=== PATIENT | female | born 1995 | race African-American/Black ===

== ENCOUNTER 2016-12-13 09:46 | Emergency (ER) | payer OTHER ==
[~2016-12-13] VITALS: Ht 160 cm; Wt 81.6 kg
[2016-12-13 09:49] VITALS: BP_SYST 160
[2016-12-13] MEDS ORDERED: methylPREDNISolone SOD SUCC/PF 62.5 MG/ML VIAL IVP ONE (10:00)
[2016-12-13] MEDS ORDERED: DIPHENHYDRAMINE HCL 25 MG CAPSULE PO ONE (10:30)
[2016-12-13 11:09] VITALS: BP_SYST 115
== END 2016-12-13 11:09 | disposition home or self-care (01) ==
LOC: SED 09:46
DX: T78.40XA Allergy, unspecified, initial encounter (principal); J45.909 Unspecified asthma, uncomplicated; Z91.012 Allergy to eggs; Z91.02 Food additives allergy status; Z91.013 Allergy to seafood; X58.XXXA Exposure to other specified factors, initial encounter
CPT/HCPCS: 96374; 99284; J2930; Q0163

== ENCOUNTER 2017-06-21 03:27 | Emergency (ER) | payer OTHER ==
[~2017-06-21] VITALS: Ht 165.1 cm; Wt 82.1 kg
[2017-06-21 03:28] VITALS: BP_SYST 138
[2017-06-21] MEDS ORDERED: NACL 0.9% 1,000 ML IV ONE (03:36)
[2017-06-21] MEDS ORDERED: FAMOTIDINE PF 20 MG/2 ML VIAL IVP ONE (03:45)
[2017-06-21] MEDS ORDERED: EPINEPHrine JECT 1 MG/10 ML SYR IM ONE (03:45)
[2017-06-21] MEDS ORDERED: methylPREDNISolone SOD SUCC/PF 62.5 MG/ML VIAL IVP ONE (03:45)
[2017-06-21] MEDS ORDERED: EPINEPHrine 1 MG/ML AMP ONE (03:51)
[2017-06-21 04:08] LABS: HEMATOCRIT 40.3 % (36-48); LYMPHOCYTES % (AUTO) 32.7 % (20.5-51.5); MEAN CORPUSCULAR HEMOGLOBIN 27 pg (27-31); MEAN CORPUSCULAR HGB CONC 32 % (32-36); MEAN CORPUSCULAR VOLUME 82 fL (79.0-98.0); MONOCYTES % (AUTO) 13.2 % (1.7-9.3); NEUTROPHILS % (AUTO) 50.6 % (40.0-70.0); PLATELET COUNT (AUTO) 325 K/uL (130-430); RED CELL DISTRIBUTION WIDTH 13.6 % (9.0-15.0); WHITE BLOOD COUNT (AUTO) 8.5 K/uL (4.8-10.8)
[2017-06-21 04:09] LABS: BASOPHILS # (AUTO) 0.3 K/uL (0.0-0.2); BASOPHILS % (AUTO) 3.4 % (0.0-2.0); EOSINOPHILS % (AUTO) 0.1 % (0.0-4.0); LYMPHOCYTES # (AUTO) 2.8 K/uL (1.0-5.5); MONOCYTES # (AUTO) 1.1 K/uL (0.0-1.0); NEUTROPHILS # (AUTO) 4.3 K/uL (1.8-7.7)
[2017-06-21 04:10] LABS: CALCIUM 8.7 mg/dL (8.4-11.0); CREATININE 1.07 mg/dL (0.55-1.30); POTASSIUM 3.8 mmol/L (3.5-5.1)
[2017-06-21 04:16] LABS: ALBUMIN 3.4 g/dL (3.4-4.8); TOTAL BILIRUBIN 0.4 mg/dL (0.0-1.0)
[2017-06-21 04:41] LABS: BILIRUBIN,URINE NEGATIVE (NEGATIVE); BLOOD, URINE NEGATIVE (NEGATIVE); CLARITY/URINE CLEAR (CLEAR); COLOR,URINE YELLOW (YELLOW); GLUCOSE,URINE NEGATIVE (NEGATIVE); KETONES,URINE NEGATIVE (NEGATIVE); LEUKOCYTE ESTERASE ,URINE NEGATIVE (NEGATIVE); NITRITE, URINE NEGATIVE (NEGATIVE); PH,URINE 5.5 (5.0-8.0); PROTEIN URINE NEGATIVE (NEGATIVE); UROBILINOGEN,URINE 0.2 (0.2-1.0)
[2017-06-21] MEDS ORDERED: EPINEPHrine 1 MG/ML AMP IM ONE (05:15)
[2017-06-21 06:30] VITALS: BP_SYST 117
== END 2017-06-21 06:30 | disposition home or self-care (01) ==
LOC: SED 03:27
DX: T78.3XXA Angioneurotic edema, initial encounter (principal); J45.909 Unspecified asthma, uncomplicated; Z91.012 Allergy to eggs; Z91.013 Allergy to seafood; Z91.018 Allergy to other foods
CPT/HCPCS: 36415; 80053; 81003; 81025; 85025; 96361; 96372; 96374; 96375; 99284; J0171; J2930; J3490; J7030

== ENCOUNTER 2017-11-13 10:29 | Emergency (ER) | payer OTHER ==
[~2017-11-13] VITALS: Ht 162.6 cm; Wt 90.7 kg
[2017-11-13 10:39] VITALS: BP_SYST 146
[2017-11-13 12:00] VITALS: BP_SYST 146
[2017-11-13] MEDS ORDERED: IBUPROFEN 600 MG TABLET PO ONE (12:00)
== END 2017-11-13 12:00 | disposition home or self-care (01) ==
LOC: SED 10:29
DX: S16.1XXA Strain of muscle, fascia and tendon at neck level, initial encounter (principal); J45.909 Unspecified asthma, uncomplicated; R03.0 Elevated blood-pressure reading, without diagnosis of hypertension; Z91.012 Allergy to eggs; Z91.013 Allergy to seafood; Z91.018 Allergy to other foods; V43.52XA Car driver injured in collision with other type car in traffic accident, initial encounter; Y93.89 Activity, other specified; Y92.488 Other paved roadways as the place of occurrence of the external cause; Y99.8 Other external cause status
CPT/HCPCS: 72050-TC; 99284

== ENCOUNTER 2018-11-17 05:16 | Emergency (ER) | payer OTHER ==
[~2018-11-17] VITALS: Ht 162.6 cm; Wt 89.8 kg
[2018-11-17] MEDS ORDERED: methylPREDNISolone SOD SUCC/PF 62.5 MG/ML VIAL IVP ONE (06:00)
[2018-11-17] MEDS ORDERED: IPRATROPIUM/ALBUTEROL SULFATE 3 ML AMPUL.NEB (DUONEB) INH ONE (06:00)
[2018-11-17 06:04] LABS: BASOPHILS % (AUTO) 0.3 % (0.0-2.0); EOSINOPHILS % (AUTO) 0.4 % (0.0-4.0); HEMATOCRIT 40.4 % (36-48); HEMOGLOBIN 13.3 g/dL (12.0-16.0); LYMPHOCYTES # (AUTO) 2.3 K/uL (1.0-5.5); LYMPHOCYTES % (AUTO) 23.6 % (20.5-51.5); MEAN CORPUSCULAR HEMOGLOBIN 27 pg (27-31); MEAN CORPUSCULAR HGB CONC 33 % (32-36); MEAN CORPUSCULAR VOLUME 83 fL (79.0-98.0); MONOCYTES % (AUTO) 10.3 % (1.7-9.3); NEUTROPHILS # (AUTO) 6.3 K/uL (1.8-7.7); NEUTROPHILS % (AUTO) 65.4 % (40.0-70.0); PLATELET COUNT (AUTO) 271 K/uL (130-430); RED BLOOD CELL COUNT(AUTO) 4.85 MIL/uL (4.2-6.2); RED CELL DISTRIBUTION WIDTH 14.1 % (9.0-15.0); WHITE BLOOD COUNT (AUTO) 9.6 K/uL (4.8-10.8)
[2018-11-17] MEDS ORDERED: methylPREDNISolone SOD SUCC/PF 62.5 MG/ML VIAL IM ONE (06:30)
[2018-11-17 07:48] VITALS: BP_SYST 132
== END 2018-11-17 07:48 | disposition home or self-care (01) ==
LOC: SED 05:16
DX: J45.901 Unspecified asthma with (acute) exacerbation (principal); J20.9 Acute bronchitis, unspecified; F41.9 Anxiety disorder, unspecified; F32.9 Major depressive disorder, single episode, unspecified; F90.9 Attention-deficit hyperactivity disorder, unspecified type; Z91.012 Allergy to eggs; Z91.013 Allergy to seafood; Z91.018 Allergy to other foods
CPT/HCPCS: 36415; 71045; 85025; 94640; 96372; 99284; J2930

== ENCOUNTER 2018-11-20 13:42 | Emergency (ER) | payer OTHER ==
[~2018-11-20] VITALS: Ht 160 cm; Wt 89.8 kg
[2018-11-20 14:07] VITALS: BP_SYST 129
[2018-11-20] MEDS ORDERED: NACL 0.9% 1,000 ML IV ONE (14:15)
[2018-11-20 14:42] LABS: BASOPHILS % (AUTO) 0.2 % (0.0-2.0); EOSINOPHILS % (AUTO) 0.2 % (0.0-4.0); HEMATOCRIT 42.6 % (36-48); HEMOGLOBIN 14.1 g/dL (12.0-16.0); LYMPHOCYTES # (AUTO) 2.1 K/uL (1.0-5.5); LYMPHOCYTES % (AUTO) 18.9 % (20.5-51.5); MEAN CORPUSCULAR HEMOGLOBIN 27 pg (27-31); MEAN CORPUSCULAR HGB CONC 33 % (32-36); MEAN CORPUSCULAR VOLUME 83 fL (79.0-98.0); MONOCYTES # (AUTO) 0.9 K/uL (0.0-1.0); NEUTROPHILS # (AUTO) 8.1 K/uL (1.8-7.7); NEUTROPHILS % (AUTO) 72.7 % (40.0-70.0); PLATELET COUNT (AUTO) 341 K/uL (130-430); RED BLOOD CELL COUNT(AUTO) 5.12 MIL/uL (4.2-6.2); RED CELL DISTRIBUTION WIDTH 13.8 % (9.0-15.0); WHITE BLOOD COUNT (AUTO) 11.2 K/uL (4.8-10.8)
[2018-11-20 15:10] LABS: CALCIUM 8.8 mg/dL (8.4-11.0); CREATININE 1.09 mg/dL (0.55-1.30); POTASSIUM 3.9 mmol/L (3.5-5.1)
[2018-11-20 15:15] LABS: ALBUMIN 3.2 g/dL (3.4-4.8); TOTAL BILIRUBIN 0.5 mg/dL (0.0-1.0)
[2018-11-20] MEDS ORDERED: KETOROLAC TROMETHAMINE 30 MG VIAL IVP ONE (15:30)
[2018-11-20] MEDS ORDERED: ONDANSETRON HCL 4 MG/2 ML VIAL IVP ONE (15:30)
[2018-11-20 16:46] LABS: BILIRUBIN,URINE NEGATIVE (NEGATIVE); BLOOD, URINE NEGATIVE (NEGATIVE); CLARITY/URINE SL HAZY (CLEAR); COLOR,URINE YELLOW (YELLOW); GLUCOSE,URINE NEGATIVE (NEGATIVE); KETONES,URINE NEGATIVE (NEGATIVE); LEUKOCYTE ESTERASE ,URINE NEGATIVE (NEGATIVE); NITRITE, URINE NEGATIVE (NEGATIVE); PROTEIN URINE NEGATIVE (NEGATIVE); UROBILINOGEN,URINE 0.2 (0.2-1.0)
[2018-11-20 18:35] VITALS: BP_SYST 130
== END 2018-11-20 18:35 | disposition home or self-care (01) ==
LOC: SED 13:42
DX: A08.4 Viral intestinal infection, unspecified (principal); J06.9 Acute upper respiratory infection, unspecified; R03.0 Elevated blood-pressure reading, without diagnosis of hypertension; F90.9 Attention-deficit hyperactivity disorder, unspecified type; F41.8 Other specified anxiety disorders; J45.909 Unspecified asthma, uncomplicated; Z91.012 Allergy to eggs; Z91.013 Allergy to seafood; Z91.018 Allergy to other foods
CPT/HCPCS: 36415; 74176; 80053; 81003; 83690; 85025; 86710; 96361; 96374; 96375; 99284; J1885; J2405; J7030

== ENCOUNTER 2019-06-18 08:52 | Emergency (ER) | payer OTHER ==
[~2019-06-18] VITALS: Ht 160 cm; Wt 86.2 kg
[2019-06-18 08:52] VITALS: BP_SYST 127
--- NOTE | 2019-06-18 09:00 | NUR ---
BROUGHT BACK TO BED #8 AND TRIAGED. REPORT GIVEN TO BOAZ
--- NOTE | 2019-06-18 09:10 | NUR ---
Patient is awake, alert, and oriented x4. Patient is complaining of cold like symptoms x3 days.
--- NOTE | 2019-06-18 09:15 | NUR ---
SIRI Preeyra at bedside examining patient.
[2019-06-18] MEDS ORDERED: IBUPROFEN 600 MG TABLET PO ONE (09:30)
[2019-06-18] MEDS ORDERED: PREDNISONE 20 MG TABLET PO ONE (09:30)
[2019-06-18 09:34] VITALS: BP_SYST 127
--- NOTE | 2019-06-18 09:35 | NUR ---
Patient given written and verbal discharge instructions and verbalizes understanding. ER MD discussed with patient the results and treatment provided. Patient in stable condition. ID arm band removed. Rx of naproxen, albuterol, prednisone given. Patient educated on pain management and to follow up with PMD. Pain Scale 7/10, MD is aware. Opportunity for questions provided and answered. Medication side effect fact sheet provided.
== END 2019-06-18 09:35 | disposition home or self-care (01) ==
LOC: SED 08:52
DX: J02.8 Acute pharyngitis due to other specified organisms (principal); B97.89 Other viral agents as the cause of diseases classified elsewhere; J45.909 Unspecified asthma, uncomplicated; F41.9 Anxiety disorder, unspecified; F32.9 Major depressive disorder, single episode, unspecified; Z91.012 Allergy to eggs; Z91.013 Allergy to seafood; Z91.018 Allergy to other foods
CPT/HCPCS: 99283; J7512